=== PATIENT | male | born 1985 | race Caucasian/White ===

== ENCOUNTER 2020-02-19 23:24 | Emergency (ER) | payer MEDICAID ==
[~2020-02-19] VITALS: Ht 190.5 cm; Wt 90.9 kg
[~2020-02-19 23:24] MED LIST: NO HOME MEDS; ONDA8TAB6 PO
[2020-02-20] LABS: BASOPHILS # (AUTO) 0.1 X10'3 (0-0.2); EOSINOPHILS # (AUTO) 0.2 X10'3 (0-0.9); EOSINOPHILS % (AUTO) 3.5 % (0-6); HEMATOCRIT 42.3 % (42.0-52.0); HEMOGLOBIN 13.9 g/dl (14.0-17.9); LYMPHOCYTES # (AUTO) 1.3 X10'3 (1.1-4.8); LYMPHOCYTES % (AUTO) 22.6 % (21-51); MEAN CORPUSCULAR HEMOGLOBIN 28.9 PG (27.0-31.0); MEAN CORPUSCULAR HGB CONC 32.8 g/dL (33.0-36.5); MEAN CORPUSCULAR VOLUME 88.2 FL (78-98); MEAN PLATELET VOLUME 6.9 FL (7.4-10.4); MONOCYTES # (AUTO) 0.6 X10'3 (0-0.9); MONOCYTES % (AUTO) 10.3 % (2-12); NEUTROPHILS # (AUTO) 3.7 X10'3 (1.8-7.7); NEUTROPHILS % (AUTO) 61.6 % (42-75); PLATELET COUNT 258 X10'3 (140-440); RED CELL DISTRIBUTION WIDTH 14.7 % (11.5-14.5); WHITE BLOOD COUNT 5.9 X10'3 (4.5-11.0)
[2020-02-20] MEDS ORDERED: proCHLORperazine 10 MG/2 ml inj IM ONE
[2020-02-20 00:13] LABS: ALANINE AMINOTRANSFERASE 25 U/L (12-78); ALBUMIN 3.2 G/DL (3.4-5.0); ALBUMIN/GLOBULIN RATIO 0.9 (1.1-1.5); ALKALINE PHOSPHATASE 82 IU/L (46-116); ANION GAP 11 (8-16); ASPARTATE AMINO TRANSFERASE 27 U/L (10-37); BILIRUBIN,TOTAL 0.4 MG/DL (0.1-1.0); BLOOD UREA NITROGEN 13 MG/DL (7-18); BUN/CREATININE RATIO 12.5 (5.4-32.0); CALCIUM 7.7 MG/DL (8.5-10.1); CHLORIDE 108 MMOL/L (99-107); CREATININE 1.04 MG/DL (0.60-1.10); GLUCOSE 135 MG/DL (70-104); POTASSIUM 3.1 MMOL/L (3.5-5.1); SODIUM 143 MMOL/L (135-145); TOTAL CARBON DIOXIDE 24.5 MMOL/L (24-32); TOTAL PROTEIN 6.7 G/DL (6.4-8.2); eGFR 81 ML/MIN
[2020-02-20 00:22] LABS: ETHANOL 0.088 GM/DL (0.0-0.010)
--- NOTE | 2020-02-20 00:22 | NUR ---
PT TRIED TO GIVE UA WAS UNABLE AT THIS TIME
[2020-02-20 00:23] LABS: ACETAMINOPHEN < 2.0 UG/ML (10-30)
[2020-02-20] MEDS ORDERED: potassium Cl 20 mEq SR tablet PO ONE (00:30)
[2020-02-20] MEDS ORDERED: naloxone 2mg/2ml inj IV STA (00:31)
[2020-02-20] MEDS ORDERED: naloxone 0.4 mg/ml inj IV ONE (00:35)
[2020-02-20] MEDS ORDERED: naloxone 2mg/2ml inj ONE (00:36)
[2020-02-20] MEDS ORDERED: NALO4SPR BOTHNARES (01:13)
[2020-02-20 01:30] LABS: CLARITY,URINE CLEAR (Clear); COLOR,URINE YELLOW (Yellow); GLUCOSE, URINE NEGATIVE (Neg); KETONES,URINE NEGATIVE (Neg); LEUKOCYTE ESTERASE ,URINE NEGATIVE (Neg); NITRITES, URINE NEGATIVE (Neg); OCCULT BLOOD,URINE NEGATIVE (Neg); PROTEIN,URINE 30 mg/dl (Neg); UROBILINOGEN,URINE 0.2 E.U/dL (0.2-1.0)
--- NOTE | 2020-02-20 01:30 | NUR ---
TALKED TO MOTHER SHE WOULD LIKE TO BE CALLED TO PICK PT UP WHEN RELEASED
--- NOTE | 2020-02-20 01:30 | NUR ---
JOSEPHINE MOTHER [phone]
[2020-02-20 01:35] LABS: UA COLLECTION TYPE CLN CATCH MIDSTREAM
[2020-02-20 01:37] LABS: BACTERIA,URINE NONE SEEN /HPF (Neg); RBC,URINE 0-2 /HPF (0-2); SQUAMOUS EPITHELIAL CELL,UR NONE SEEN /LPF (FEW); WBC,URINE 0-4 /HPF (0-4)
[2020-02-20 01:38] LABS: SPERM FEW /HPF (NEGATIVE)
[2020-02-20 01:40] LABS: URINE AMPHETAMINE SCREEN POSITIVE (Neg); URINE BARBITUATE SCREEN NEGATIVE (Neg); URINE BENZODIAZEPINES SCREEN NEGATIVE (Neg); URINE CANNABINOID SCREEN POSITIVE (Neg); URINE COCAINE SCREEN NEGATIVE (Neg); URINE METHADONE SCREEN NEGATIVE (Neg); URINE OPIATE SCREEN POSITIVE (Neg); URINE PHENCYCLIDINE SCREEN NEGATIVE (Neg)
[2020-02-20 04:17] VITALS: BP 145/76
== END 2020-02-20 04:18 | disposition home or self-care (01) ==
LOC: ER 23:24
DX: T40.1X1A Poisoning by heroin, accidental (unintentional), initial encounter (principal); Z79.899 Other long term (current) drug therapy; Y92.89 Other specified places as the place of occurrence of the external cause
CPT/HCPCS: 36415; 71045; 80053; 80305; 80320; 80329; 81001; 84443; 85025; 96374; 99285; J2310

== ENCOUNTER 2020-02-29 13:33 | Emergency (ER) | payer MEDICAID ==
[~2020-02-29] VITALS: Ht 190.5 cm; Wt 95.4 kg
[~2020-02-29 13:33] MED LIST changes: +NALO4SPR BOTHNARES
[2020-02-29 15:01] LABS: BASOPHILS # (AUTO) 0.1 X10'3 (0-0.2); BASOPHILS % (AUTO) 1.4 % (0-1); EOSINOPHILS # (AUTO) 0.1 X10'3 (0-0.9); EOSINOPHILS % (AUTO) 1.1 % (0-6); HEMATOCRIT 45.9 % (42.0-52.0); HEMOGLOBIN 15.1 g/dl (14.0-17.9); LYMPHOCYTES # (AUTO) 1.2 X10'3 (1.1-4.8); LYMPHOCYTES % (AUTO) 12.8 % (21-51); MEAN CORPUSCULAR HEMOGLOBIN 29.6 PG (27.0-31.0); MEAN CORPUSCULAR HGB CONC 32.8 g/dL (33.0-36.5); MEAN CORPUSCULAR VOLUME 90.1 FL (78-98); MEAN PLATELET VOLUME 6.7 FL (7.4-10.4); MONOCYTES # (AUTO) 0.9 X10'3 (0-0.9); MONOCYTES % (AUTO) 10.3 % (2-12); NEUTROPHILS # (AUTO) 6.7 X10'3 (1.8-7.7); NEUTROPHILS % (AUTO) 74.4 % (42-75); PLATELET COUNT 323 X10'3 (140-440); RED CELL DISTRIBUTION WIDTH 15.3 % (11.5-14.5)
[2020-02-29 15:09] LABS: D-DIMER 0.53 MG/L FEU (0-0.50)
[2020-02-29 15:11] LABS: ALANINE AMINOTRANSFERASE 21 U/L (12-78); ALBUMIN 3.5 G/DL (3.4-5.0); ALBUMIN/GLOBULIN RATIO 0.9 (1.1-1.5); ALKALINE PHOSPHATASE 93 IU/L (46-116); ANION GAP 6 (8-16); ASPARTATE AMINO TRANSFERASE 17 U/L (10-37); BILIRUBIN,TOTAL 0.4 MG/DL (0.1-1.0); BLOOD UREA NITROGEN 15 MG/DL (7-18); BUN/CREATININE RATIO 15.3 (5.4-32.0); CALCIUM 8.7 MG/DL (8.5-10.1); CHLORIDE 105 MMOL/L (99-107); CREATININE 0.98 MG/DL (0.60-1.10); GLUCOSE 89 MG/DL (70-104); POTASSIUM 4.3 MMOL/L (3.5-5.1); SODIUM 139 MMOL/L (135-145); TOTAL CARBON DIOXIDE 28.1 MMOL/L (24-32); TOTAL PROTEIN 7.3 G/DL (6.4-8.2); eGFR 87 ML/MIN
[2020-02-29 15:56] LABS: ABG BASE EXCESS 1.2 mmol/L (-2.0-3.0); ABG OXYGEN SATURATION 78.6 % (95-98); ABG PCO2 (T) 52.4 mmHg (35.0-45.0); ABG PH (T) 7.346 (7.350-7.450); ABG PO2 (T) 40.3 mmHg (83-108); ALLEN'S TEST POSITIVE; FCOHb 2.3 % (0.5-1.5); FMetHb 0.2 % (0.3-1.12); FO2Hb 76.6 % (94-100); TOTAL HEMOGLOBIN 15.9 G/dl (14.0-17.9)
[2020-02-29] MEDS ORDERED: naloxone 2mg/2ml inj IV STA (15:59)
[2020-02-29] MEDS ORDERED: iohexol 350MG/ML 100ml bottle IV ONE (16:06)
[2020-02-29 17:16] VITALS: BP 139/91
== END 2020-02-29 17:19 | disposition home or self-care (01) ==
LOC: ER 13:33
DX: T40.1X4A Poisoning by heroin, undetermined, initial encounter (principal); F19.10 Other psychoactive substance abuse, uncomplicated; T43.624A Poisoning by amphetamines, undetermined, initial encounter; F17.200 Nicotine dependence, unspecified, uncomplicated; Z79.899 Other long term (current) drug therapy; Y92.89 Other specified places as the place of occurrence of the external cause
CPT/HCPCS: 36415; 36600; 71045; 71275; 80053; 82803; 85018; 85025; 85379; 93005; 96374; 99285; J2310; Q9967